=== PATIENT | female | born 1990 | race Asian ===

== ENCOUNTER 2023-06-30 17:46 | Emergency (ER) | payer OTHER ==
[~2023-06-30] VITALS: Ht 162.6 cm; Wt 56.0 kg
[2023-06-30 18:02] VITALS: TEMP 98.2; O2SAT 100
[2023-06-30 18:35] LABS: CLARITY URINE TURBID (CLEAR); COLOR URINE YELLOW (YELLOW); GLUCOSE URINE NEGATIVE (NEGATIVE); KETONES URINE NEGATIVE (NEGATIVE); LEUKOCYTE ESTERASE URINE 3+ (NEGATIVE); NITRITE URINE NEGATIVE (NEGATIVE); OCCULT BLOOD URINE 3+ (NEGATIVE); PH URINE 6.5 (4.5-8.0); PROTEIN URINE 1+ (NEGATIVE); SPECIFIC GRAVITY URINE 1.012 (1.005-1.030); UROBILINOGEN URINE 0.2 E.U./dL (0.2-1.0)
[2023-06-30] MEDS ORDERED: CEPH500C2 MT (19:19)
[2023-06-30] MEDS ORDERED: PHEN-910 MT (19:20)
[2023-06-30 19:22] LABS: BACTERIA URINE 2+; RBC URINE TNTC /hpf (0-2); SQUAMOUS EPITHELIAL CELL URINE 1+ /lpf (RARE/1+)
[2023-06-30 19:23] LABS: WBC URINE TNTC /hpf (0-2)
[2023-06-30 19:24] LABS: YEAST URINE FEW
[2023-06-30 20:03] VITALS: BP 130/80; PULSE 70; RESP 15
[2023-06-30] MEDS: CEPHALEXIN 250MG CAPSULE PO ONE (20:03)
== END 2023-06-30 20:04 | disposition home or self-care (01) ==
LOC: ER 17:46
DX: N30.80 Other cystitis without hematuria (principal); R33.0 Drug induced retention of urine
CPT/HCPCS: 81003; 81025; 87086; 87186; 87077; 99283; Z7610